=== PATIENT | male | born 1945 | race Caucasian/White ===

== ENCOUNTER 2019-03-15 05:27 | Inpatient (IN) | payer MEDICARE ==
[~2019-03-15] VITALS: Ht 180.3 cm; Wt 72.6 kg
[2019-03-15] MEDS ORDERED: REMERON15 M2 PO (05:40)
[2019-03-15] MEDS ORDERED: ABILIFY5 MG PO (05:41)
[2019-03-15] MEDS ORDERED: EFFEXOR XR150 M1 PO (05:43)
[2019-03-15] MEDS ORDERED: Synthroid,Lev150 MCG PO (05:44)
[2019-03-15] MEDS ORDERED: CASODEX50 MG PO (05:45)
[2019-03-15] MEDS ORDERED: MULTIVITAMINS1 EAC5 PO (05:46)
--- NOTE | 2019-03-15 10:40 | NUR ---
MASHA ROBLESSTARR a 73 year old M admitted via stretcher from the ADMITTING as a emergency 72 hr. hold admission. Arrived on unit at 1040. ALLERGIES: NKA. Vital signs are: 97.3-97-18 146/72 SPO2 99%RA. The client signed the following forms with stated understanding: Authorization For The Release of Medical Information, Clothing List, Consent and Release Forms/Receipt of Rights, Acknowledgement of Advance Directive Information, Behavioral Health Consent Form, and Informed Consent of Medications. Admitted under the services of Dr. NIKOLAY ROJAS,[facility]. A search was conducted and hazardous articles were removed. Client was oriented to the unit. CLIENT IS ALERT, ORIENTED X 4. STATES HE IS DEPRESSED, DENIES SI, INTENT, OR PLAN. STATES HE HAS FLEETINGLY HAD SUICIDAL THOUGHTS T/O HIS LIFE BUT STATES "I DON'T HAVE THE GUTS TO EVER DO IT". PT AMBULATES WITH STEADY GAIT. CONTINENT OF BOWEL AND BLADDER. Q15 MIN MONITORING PER POLICY. TOM WALDEN
[2019-03-15 11:01] VITALS: BP 146/72
--- NOTE | 2019-03-15 11:44 | NUR ---
Spoke with Pt. briefly and introduced Self. Pt. came to [facility]. States he lives at Home and would like to return home at discharge.
--- NOTE | 2019-03-15 15:45 | NUR ---
PM GROUP/BINGO PT ATTENDED AND PARTICIPATED IN AFTERNOON GROUP THERAPY BY PLAYING SEVERAL GAMES OF [employer]. PT EXPRESSED NO SUICIDAL IDEATIONS WHILE IN GROUP
[2019-03-15 17:37] LABS: BASO # 0.1 10*3/uL (0.0-0.1); BASO % 0.8 % (0.0-1.0); EOS # 0.2 10*3/uL (0.0-0.4); EOS % 2.6 % (1.0-4.0); HEMATOCRIT 37.6 % (42.0-52.0); HEMOGLOBIN 12.1 g/dl (14.0-18.0); LYMPH # 1.5 10*3/uL (1.3-4.4); LYMPH % 20.5 % (27.0-41.0); MEAN CELL VOLUME 90.8 fl (80.0-94.0); MEAN CORPUSCULAR HGB 29.2 pg (27.0-31.0); MEAN CORPUSCULAR HGB CONC 32.2 g/dl (33.0-37.0); MEAN PLATELET VOLUME 9.9 fl (9.6-12.3); MONO # 0.5 10*3/uL (0.1-1.0); MONO % 6.6 % (3.0-9.0); NEUT # 5.1 10*3/uL (2.3-7.9); NEUT % 69.2 % (47.0-73.0); PLATELET COUNT AUTOMATED 224 10*3/uL (130-400); RED BLOOD COUNT 4.14 10*6/uL (4.50-5.90); RED CELL DISTRI WIDTH 14.4 % (0-14.5); WHITE BLOOD COUNT 7.4 10*3/uL (4.8-10.8)
[2019-03-15 17:51] LABS: CREATININE 1.52 mg/dL (0.70-1.30); POTASSIUM 4.1 mmol/L (3.5-5.1); TOTAL PROTEIN 7.6 gm/dL (6.4-8.2)
[2019-03-15 17:59] LABS: THYROID STIM HORMONE (HS) 8.93 uIU/ml (0.358-4.75)
[2019-03-15 19:15] VITALS: BP 132/72
--- NOTE | 2019-03-15 20:28 | NUR ---
PT REFUSED IV FLUIDS. STATES HE WILL DRINK MORE FLUIDS. SPOKE TO DR ESCOBAR AND UP DATE PROVIDED. OK TO HOLD FLUIDS
--- NOTE | 2019-03-15 22:00 | NUR ---
EMESIS OF MODERATE AMOUNT UNDIGESTED FOOD ALL OVER BATHROOM SINK AND FLOOR. CLIENT STATES IT JUST STARTED. STATES FEELS FINE NOW. DENIES NEED FOR MEDICATION. NOTFIED DR ESCOBAR OF EVENTS.
--- NOTE | 2019-03-15 22:43 | NUR ---
MALOXX GIVEN FOR C/O UPSET STOMACHE
--- NOTE | 2019-03-15 23:38 | NUR ---
STATES EMESIS OF MALOXX. AGREES TO IV FLUIDS.
--- NOTE | 2019-03-16 00:01 | NUR ---
IV started left forearm with #20 angiocath after 1 attempts. The IV site was prepped with Chloraprep. Heparin lock attached. IV solution 0.9NS infusing at 125 cc/hr. Sterile dressing applied. Patient tolerated precedure well. Procedure performed according to [facility] policy & procedure. KIERSTEN BUSTOS
--- NOTE | 2019-03-16 02:30 | NUR ---
IV FLUIDS INFUSING WITHOUT DIFFICULTY. NO NEW EMESIS SINCE IVF'S STARTED
--- NOTE | 2019-03-16 03:11 | NUR ---
24 HR chart check completed.
[2019-03-16 06:36] LABS: BUN 32 mg/dl (7-24); CHLORIDE 107 mmol/L (98-107); CHOLESTEROL 188 mg/dL (<200); HDL CHOLESTEROL 53 mg/dl (40-60); LDL CHOLESTEROL 117 mg/dL (9-159); SODIUM 139 mmol/L (136-145); TRIGLYCERIDES 91 mg/dl (<150); VLDL CHOLESTEROL 18 mg/dL (6-40)
[2019-03-16 06:37] LABS: FREE T4 0.83 ng/dl (0.76-1.46)
--- NOTE | 2019-03-16 07:34 | NUR ---
2ND BAG OF 0.9NSS HUNG. ASSISTED CLIENT IN GETTING UP AND DRESSED FOR BREAKFAST. STATES HE IS HUNGRY
[2019-03-16 07:39] LABS: VITAMIN D, 25-HYDROXY 38.8 ng/mL (30-100)
[2019-03-16 08:00] VITALS: BP 146/78
--- NOTE | 2019-03-16 08:10 | NUR ---
Occupational Therapy evaluation completed on 3 with full eval to follow. Precautions include 3n unit prec, IV pole for hydration, impaired standing balance and activity tolerance, low complexity level 07981. Recommend OT per POC and return home with increased community support. Thank you. Calli Fall OTR/L
--- NOTE | 2019-03-16 08:15 | NUR ---
Treatment Plan meeting was held with Dr. Ford, RN, AT, CORPORATE LEGAL ASSISTANT-S and Services Mgr in attendance. Plan for discharge next week. Pt. will return home at discharge.
--- NOTE | 2019-03-16 08:15 | NUR ---
DR MARTINI ON UNIT TO SEE PATIENT
--- NOTE | 2019-03-16 09:37 | NUR ---
Nursing screen received and occupational therapy referral received. Thank you. Renee Fall OTR/L
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
[2019-03-16 10:58] LABS: BILIRUBIN NEGATIVE (NEGATIVE); BLOOD NEGATIVE (NEGATIVE); CLARITY SL CLOUDY (CLEAR); COLOR YELLOW (YELLOW); GLUCOSE NEGATIVE (NEGATIVE); KETONE NEGATIVE (NEGATIVE); LEUKO ESTERASE NEGATIVE (NEGATIVE); NITRITE NEGATIVE (NEGATIVE); UROBILINOGEN 0.2 E.U./dl (0.2-1.0)
[2019-03-16 11:12] LABS: WBC 0-2 wbc/hpf (0-5)
--- NOTE | 2019-03-16 11:40 | NUR ---
AM GROUP/EXERCISE AND BRAIN GAMES PT ATTENDED MORNING GROUP THERAPY AND PARTICIPATED IN ALL ACTIVITIES. PT EXPRESSED NO SUICIDAL IDEATIONS WHILE IN GROUP. PT WAS QUIET AND FOCUSED.
--- NOTE | 2019-03-16 11:43 | NUR ---
P-CONFUSION, DEPRESSED MOOD I-REDIRECTION WITH 1:1 THERAPEUTIC INTERVENTIONS AND PRESENT REALITY. EDUCATE AND ENCOURAGE MEDICATION COMPLIANCE R-PATIENT MEDICATION COMPLIANT. PATIENT REQUESTED TO REVIEW MEDICATIONS WITH THIS NURSE AND WANTING TO KNOW WHY HE WAS TAKING THEM. THIS NURSE EDUCATED PATIENT ABOUT MEDICATONS. PATIENT HAS NSS INFUSING AT 125ML INTO LEFT HAND WITHOUT DIFFICULT. PATIENT AMBULATING ON UNIT WITH STEADY GAIT AND WITHOUT ASSISTIVE DEVICE. PATIENT URINE SPECIMEN COLLECTED VIA CLEAN CATCH. URINE CLOUDY YELLOW. PATIENT CONTINENT OF URINE PRIOR TO URINE SPECIMEN COLLECTION. URINE OUTPUT OF 350ML. PATIENT DENIES DYSURIA P-CONTINUE TO ENCOURAGE MEDICATION COMPLIANCE, CONTINUE TO PRESENT REALITY, ENCOURAGE GROUP THERAPY WHILE AWAKE
--- NOTE | 2019-03-16 14:15 | NUR ---
PHYSICAL THERAPY Eval completed low complexity leverl [id number] pending progres recomend home with HH ? any family/cheondoism support or possible assisted living. Full report to follow presents with decrease enduranc/balance with ambulation PT to work on strenthening amb balance and safety. Angela Sharma PT
--- NOTE | 2019-03-16 15:26 | NUR ---
DR WHITNEY UPDATED THAT PATIENT COMPLETED WITH IVF AT THIS TIME. DR WHITNEY TO REVIEW TO SEE IF LAB WORK TO BE ORDERED IN THE AM
--- NOTE | 2019-03-16 15:39 | NUR ---
PM GROUP/LEISURE INTERESTS PT WAS PRESENT FOR AFTERNOON GROUP THERAPY AND PARTICIPATED BY WATCHING [employer]. PT WAS QUIET AND FOCUSED. PT EXPRESSED NO SUICIDAL IDEATIONS WHILE IN GROUP
[2019-03-16 19:45] VITALS: BP 129/65
--- NOTE | 2019-03-17 04:38 | NUR ---
24 HR chart check completed.
--- NOTE | 2019-03-17 05:16 | NUR ---
P- DEPRESSED MOOD, CONFUSION. I- REDIRECTION WITH 1:1, EDUCATE AND ENCOURAGE MED COMPLIANCE. R- IS MED COMPLIANT. PATIENT EDUCATED ABOUT MEDS. CONTINUE WITH PERIPHERAL LINE BUT NO FLUIDS. AMBULATES ON UNIT GAIT STEADY. HAD AN EMISIS OF UNDIGESTED FOOD AT 0130. VSS, HOB ELEVATED. RESP EASY. REFUSED PADMINI GENNA OR MAALOX. HAS HAD NO FURTHER EMESIS. WILL CONTINUE TO MOJNITOR. P- CONTINUE TO MONITOR MOOD AND ENCOURAGE INTERACTIOIN AND TO VERBALIZE FEELINGS.
[2019-03-17 08:00] VITALS: BP 131/84
--- NOTE | 2019-03-17 08:00 | NUR ---
Patient eating breakfast quietly with no c/o discomfort. Respirations easy and regular. Vital signs stable. No overt distress. TOM WALDEN
--- NOTE | 2019-03-17 09:13 | NUR ---
PT C/O NAUSEA AND VOMITING AT HS. STATES HIS DEPRESSION IS NO BETTER THAN WHEN HE ARRIVED. PT QUESTIONING MEDICATIONS. PT ASSESSED FOR MOOD AND AFFECT. ASSESSED FOR SI, INTENT OR PLAN. PROVIDED WITH MEDICATION EDUCATION. SPOKE WITH VALERIA SIMPSON REGARDING MEDICATIONS AND SIDE EFFECTS. PT STATES HE IS STILL DEPRESSED, AFFECT IS GLAT. PT DENIES SI, INTENT, OR PLAN. PT IS ISOLATIVE/WITHDRAWN TO SELF, WILL INTERACT WHEN VERBALLY CUED. PT SPEECH IS SLOW, SOFT, MONOTONE. CREMATORY ATTENDANT DISCONTINUED TRINTELLIX IN LIEU OF REMERON D/T PT C/O NAUSEA AND HAVING EMESIS X2 NIGHTS. WILL CONTINUE TO EDUCATE PT ON MEDICATIONS. WILL CONTINUE TO MONITOR MOOD, ASSESS FOR SI. WILL CONTINUE TO MONITOR EFFECTIVENESS AND SIDE EFFECTS OF MEDICATIONS. Q15 MIN MONITORING PER POLICY FOR SAFETY.
--- NOTE | 2019-03-17 12:01 | NUR ---
AM GROUP/EXERCISES/MUSIC/GAMES PT ENCOUYRAGED TO ATTEND AN DPARTICIPATE BUT PT CCHOSE TO REMAIN IN ROOM NAPPING AT THIS TIME. PT WILL CONTINUE TO BE ENCOURAGED TO ATTEND AND PARTICIPATE TO IN FUTURE GROUP SESSIONS.
--- NOTE | 2019-03-17 15:55 | NUR ---
PM GROUP/MUSIC/CRAFT PT ATTENDED AND PARTICIPATED IN GROUP SITTING IN CHAIR IN BACK OF ROOM PT KEPT QUIET AND REMAINED FOCUSED. PT EXPRESSED NO S.I. AT THIS TIME AND WILL CONTINUE TO ATTEND AND PARTICIPATE IN FUTURE GROUP SESSIONS.
[2019-03-17 19:59] VITALS: BP 136/60
--- NOTE | 2019-03-17 22:05 | NUR ---
Patient alert and oriented x3 with a few episodes of confusion noted. Mood is depressed. Denies any suicidal thoughts at this time. No hallucinations noted at this time. Patient compliant with medication without any difficulty. Provided emotional support. Patient ambulated in hallway with steady gait and unassisted. Plan to continue to encourage medication compliance and also continue to provide emotional support. Will continue to monitor moods and behaviors. Q 15 minute safety checks continued and maintained. See [facility] flowsheet for further documentation.
--- NOTE | 2019-03-18 00:15 | NUR ---
24 HR chart check completed.
--- NOTE | 2019-03-18 06:38 | NUR ---
Patient slept approx. 8+ hours throughout shift. Q 15 minute safety checks continued and maintained.
--- NOTE | 2019-03-18 07:56 | NUR ---
Patient resting quietly with no c/o discomfort. Respirations easy and regular. Vital signs stable. No overt distress. GIVENS,LOIS
[2019-03-18 08:27] VITALS: BP 151/79
--- NOTE | 2019-03-18 18:45 | NUR ---
stable mood. pt medication compliant. education provided regarding medications. pt verbalized understanding. interactive with peers and staff. no adverse moods or behaviors noted.
[2019-03-18 19:57] VITALS: BP 132/65
--- NOTE | 2019-03-18 20:10 | NUR ---
24 HR chart check completed.
--- NOTE | 2019-03-18 21:33 | NUR ---
P-MILDLY DEPRESSED I-ENCOURAGE VENTILATION OF FEELINGS & PROVIDE EMOTIONAL SUPPORT, ADMININSTER MEDS, MONITOR SLEEP R-MOOD MILDLY DEPRESSED. STATED THAT HE IS FEELING A LITTLE BETTER & HAS NOT HAD ANY MORE EMESIS. ALERT & ORIENTED X 4. HAS BEEN SITTING IN THE DINING ROOM WATCHING A FOOTBALL GAME BUT SITS QUIETLY & KEEPS TO HIMSELF. ATE SNACK. COMPLIANT WITH MEDS. P-CONTINUE TO MONITOR & PROVIDE EMOTIONAL & PHYSICAL SUPPORT NEEDED.
--- NOTE | 2019-03-19 05:22 | NUR ---
PT HAS SLEPT PAST 2129 WITH 1 BRIEF AWAKENING TO GO TO THE BATHROOM.
--- NOTE | 2019-03-19 07:25 | NUR ---
PHYSICAL THERAPY Patient seen this am for therapy visit and was just awakening supine in bed upon therapist arrival. Patient identified by name / and reports no new c/o's at this time. Patient transfers supine to sit EOB, then sit to stand CGA x 1. Patient ambulates without AD, ad hanh in hallway, SBA, 100'x 1, demonstrating slow, steady contreras and no LOB. Patient able to take 5-6 backward steps and tolerated single leg stance L side 5 seconds / R side 6 seconds. Patient returned to activity room chair at table awaiting breakfast and remained under [facility] staff Supervision. Will continue per POC as toleraed, total treatment time 17 minutes. Wei Baltazar, BOOK SHELVER
--- NOTE | 2019-03-19 07:30 | NUR ---
OT NOTE Pt was seen this A.M. 1:1 for 16 minute OT session with GLASS INSERTER and nursing staff present for observation only. Upon arrival pt was supine in bed. Pt identified by name and and had no complaints at this time. Pt transferred supine to sit EOB with supervision. While sitting EOB pt donned B socks and slippers with supervision. Also while sitting pt donned pants and underpants up to his knees with supervision and stood while donning from knees up with supervision. Also while standing pt donned shirt and jacket with supervision. Functional mobility was then completed from his bedroom to the dining soriano with SBA for safety. There he was left sitting upright under [facility] staff supervision. COntinue with POC as indicated. BHUMIKA Rojas/Zohreh
[2019-03-19 07:58] VITALS: BP 137/77
--- NOTE | 2019-03-19 08:03 | NUR ---
PHYSICAL THERAPY Screen received, pt has been evaluated and is currently on caseload thank you Angela Sharma PT
--- NOTE | 2019-03-19 08:15 | NUR ---
Treatment Plan meeting was held with Dr. Ford, RN, AT, PILLOWCASE CLEANER-S and De Icer Installer in attendance. Plan for discharge next week. Pt. came to the hospital from home and at this point plan is for patient to return home.
--- NOTE | 2019-03-19 08:40 | NUR ---
DR. MARTINEZ ON UNIT TO ASSESS PT, UPDATE PROVIDED.
--- NOTE | 2019-03-19 11:44 | NUR ---
AM GROUP/EXERCISE AND CURRENT EVENTS PT ATTENDED AND PARTICIPATED IN MORNING GROUP THERAPY. PT WAS QUIET BUT MORE ENGAGED IN THE GROUP CONVERSATION. PT EXPRESSED NO SUICIDAL IDEATIONS WHILE IN GROUP
--- NOTE | 2019-03-19 15:46 | NUR ---
PM GROUP/WREATHS PT ATTENDED AND PARTICIPATED IN AFTERNOON GROUP THERAPY. PT WAS QUIET AND ON TASK. PT EXPRESSED NO SUICIDAL IDEATIONS WHILE IN GROUP
--- NOTE | 2019-03-19 16:55 | NUR ---
P: PT MILDLY DEPRESSED, ISOALTIVE TO SELF AT TIMES. I: PROVIDE EMOTIONAL SUPPORT AND 1:1 FOR PT TO VOICE FEELINGS, ENCOURAGE MED COMPLIANCE AND PROVIDE MED EDUCATION, ENCOURAGE GROUP PARTICIPATION AND SOCIALIZATION. R: PT ALERT TO PERSON, PLACE, TIME AND SITUATION. PT MED COMPLIANT WITHOUT DIFFULTY, MED EDUCATION PROVIDED. PT CALM, MOOD REMAINS MILDLY DEPRESSED. PT PARTICIPATED IN GROUP THROUGHOUT THE DAY WITH ENCOURAGEMENT. PT AMBULATORY THROUGHOUT UNIT, GAIT STEADY. PT CONTINENT OF BOWEL AND BLADDER. P: MONITOR PT BEHAVIORS ON Q15 MIN SAFETY CHECKS, ENCOURAGE MED COMPLIANCE AND PROVIDE MED EDUCATION, PROVIDE EMOTIONAL SUPPORT AND 1:1 FOR PT TO VOICE FEELINGS, ENCOURAGE GROUP PARTICIPATION AND SOCIALIZATION.
[2019-03-19 19:39] VITALS: BP 125/66
--- NOTE | 2019-03-19 19:42 | NUR ---
24 HR chart check completed.
--- NOTE | 2019-03-19 20:47 | NUR ---
EVENING/GAMES/MUSIC/CRAFTS PT ATTENDED AFTER GETTING SHOWER AND PARTICIPATED IN GAME AND CHOSE NOT TO WORK ON CRAFT AT THIS TIME. PT QUIET BUT OBSERVANT. PT EXPRESSED NO S.I. AT THIS TIME AND WEILL CONTINUE TO ATTEND AND PARTICIPATE IN FUTURE GROUP SESSIONS.
--- NOTE | 2019-03-19 20:57 | NUR ---
P-MILDLY DEPRESSED I-ENCOURAGE VENTILATION OF FEELINGS & PROVIDE EMOTIONAL SUPPORT, ADMININSTER MEDS, MONITOR SLEEP R-MOOD MILDLY DEPRESSED. STATED THAT HE IS FEELING A LITTLE BETTER. PARTICIPATED IN RECREATIONAL THERAPY THIS EVENING WITH A BRIGHTER AFFECT NOTED WHILE INTERACTING WITH PEERS. ALERT & ORIENTED X 4. ATE SNACK. COMPLIANT WITH MEDS. P-CONTINUE TO MONITOR & PROVIDE EMOTIONAL & PHYSICAL SUPPORT NEEDED.
--- NOTE | 2019-03-20 05:28 | NUR ---
SLEPT PAST 2200
--- NOTE | 2019-03-20 07:18 | NUR ---
OT NOTE Pt was seen this A.M. 1:1 for 18 minute OT session with PLANT TENDER and nursing staff present for observation only. Upon arrival pt was supine in bed. Pt identified by name and and had no complaints at this time. Pt transferred supine to sit EOB with supervision. While sitting EOB pt donned B socks, shoes, and shirt with supervision. While donning his pants pt was attempting to complete while standing. While completing single leg stance pt had LOB that required Sigifredo to correct. Pt was educated on safety concerns and presented with good carry over. He then sat while donning his pants with supervision. Functional mobility was then completed into the bathroom with supervision. There he completed toileting task and sink side grooming with supervision. Pt was left sitting upright in the dining room under [facility] staff supervision. COntinue with POC as able. BHUMIKA Rojas/Zohreh
[2019-03-20 07:42] VITALS: BP 139/72
--- NOTE | 2019-03-20 08:15 | NUR ---
Treatment Plan meeting was held with Nurse Practitioner, RN, AT, DEBORAH-S and Astrobiologist in attendance. Plan for discharge next week. Pt. will return home at discharge.
--- NOTE | 2019-03-20 08:20 | NUR ---
JENA JOSEPH ON UNIT TO SEE PATIENT
--- NOTE | 2019-03-20 08:26 | NUR ---
PHYSICAL THERAPY Patient seen this am for therapy visit and was supine in bed upon therapist arrival. Patient identified by name / and was very pleasant this morning. OT dental chairside assistant was also present for observation only during TERRESTRIAL ECOLOGIST visit as patient transfers supine to sit EOB, then sit to stand SBA. Patient ambulates without AD, > 100'x 1, demonstrating slow, steady contreras, no LOB, including backward gait 5'x 2. Patient tolerated eyes open / closed and 360 degree turn around, SBA with no LOB. Patient returned to acitity room chair at table awaiting breakfast and remained under [facility] staff Supervision. Will continue per POC as tolerated, total treatment time 14 minutes. Wei Baltazar, TERRESTRIAL ECOLOGIST
--- NOTE | 2019-03-20 11:39 | NUR ---
AM GROUP PT ATTENDED AND PARTICIPATED IN MORNING GROUP THERAPY. PT WAS QUIET, ON TASK AND GOAL DRIVEN. PT EXPRESSED NO SUICIDAL IDEATIONS WHILE IN GROUP
--- NOTE | 2019-03-20 12:19 | NUR ---
P-DEPRESSED MOOD, ISOLATIVE I-REDIRECTION WITH 1:1 THERAPEUTIC INTERVENTIONS AND PRESENT REALITY. EDUCATE AND ENCOURAGE MEDICATION COMPLIANCE R-PATIENT MEDICATION COMPLIANT. PATIENT AMBULATING ON UNIT WITH STEADY GAIT AND WITHOUT ASSISTIVE DEVICE. PATIENT ISOLATIVE ON UNTI AT TIMES AND ENCOURAGAED TO COME OUT OF ROOM THROUGHOUT SHIFT. PATIENT STATING "I FEEL A LITTLE BETTER TODAY BUT IM JUST TIRED". P-CONTINUE TO ENCOURAGE MEDICATION COMPLIANCE, CONTINUE TO PRESENT REALITY, ENCOURAGE GROUP THERAPY WHILE AWAKE
--- NOTE | 2019-03-20 14:41 | NUR ---
Individual counseling with pt this afternoon. Pt stated that he was feeling severely depressed and discouraged. Empathized with pt who then stated that he did not sleep well last night. He also shared that a partial hospitalization program was mentioned to him as a possible discharge plan and that the thought of this has him all upset. Explained to pt that this parts data writer would work with pt to determine pt's needs for discharge. Informed pt that as pt nears discharge, all options will be discussed with him. Redirected pt to topic of gratitude and discussed what pt is thankful for. Pt stated it remains very difficult for him to find what he is thankful for but after a few minutes, pt stated that he was thankful for the 3 meals that he has been getting daily in the [facility] and he is thankful for his apartment. Discussed automatic thoughts and educated pt about recognizing automatic thoughts and correcting these thoughts with rational responses. Provided pt with an example of each. Provided pt with worksheets for correcting automatic thoughts. Also discussed was pt's increased anxiety at times due to the noise in the activity room. Informed pt that when he felt overwhelmed by the talking and noise in that room, pt could go to one of the quiet rooms and work on his gratitude journal or worksheets. Pt expressed appreciation. Pt displayed a flat affect throughout the session. Pt voiced discouragement about his depression but a want to feel better. Pt was soft-spoken and appropriately engaged in the session.
--- NOTE | 2019-03-20 19:52 | NUR ---
24 HR chart check completed.
[2019-03-20 20:00] VITALS: BP 111/65
--- NOTE | 2019-03-20 21:14 | NUR ---
P-DEPRESSED I-ENCOURAGE VENTILATION OF FEELINGS & PROVIDE EMOTIONAL SUPPORT, ADMININSTER MEDS, MONITOR SLEEP R-MOOD DEPRESSED. CONTINUES TO STATE THAT HE IS FEELING A LITTLE BETTER. SAT IN THE DINING ROOM & WAS ISOLATIVE TO HIMSELF. ALERT & ORIENTED X 4. ATE SNACK. COMPLIANT WITH MEDS. STATED HE HAD A BM TODAY. P-CONTINUE TO MONITOR & PROVIDE EMOTIONAL & PHYSICAL SUPPORT NEEDED.
--- NOTE | 2019-03-21 05:48 | NUR ---
PT HAS SLEPT PAST 2199
--- NOTE | 2019-03-21 07:10 | NUR ---
PHYSICAL THERAPY Patient seen this am for therapy visit and was sitting up on EOB upon therapist arrival. Patient identified by name / and voices no new c/o's at this time. Patient was Independent with all transfers and gait activity this session, demonstrating no LOB. Patient ambulated > 300' x 1 and completed TUG assessment in 10.26 seconds, no AD and no LOB. Patient was very plesant to work with this morning and returned to activity room chair awaiting breakfast under [facility] staff Supervision. OT assistant toddler teacher was also present for observation only during SANDWICH AND DRINK CART OPERATOR visit. Per discussion with Supervising therapist, patient to be d/c this date from therapy secondary to goals being MET. Wei Baltazar, SANDWICH AND DRINK CART OPERATOR
--- NOTE | 2019-03-21 07:35 | NUR ---
OT NOTE Pt was seen this A.M. 1:1 for 25 minute OT session with TRAINING OFFICER and nursing staff present for observation only. Upon arrival pt was supine in bed. Pt identified by name and and had no complaints at this time. Pt transferred supine to sit EOB with supervision. Sit to stand was then completed from bed level with supervision, followed by functional mobility to his closet where he gathered supplies needed for dressing and grooming task. Pt then sat EOB while donning pants, socks, and shoes with supervision. He then stood while donning shirt and over shirt with supervision. Functional mobility completed to the bathroom where he completed toileting task and stood sink side completing UB grooming with supervision. Functional mobility was then completed to the quiet room where he completed 5 time sit to stand without the use of his upper extremities in 18 seconds. Pt was left sitting upright in the dining room under [facility] staff supervision. Continue with POC as indicated. BHUMIKA Rojas/Zohreh
[2019-03-21 08:00] VITALS: BP 118/66
--- NOTE | 2019-03-21 08:53 | NUR ---
JENA HASSAN CNP ON UNIT TO ASSESS PATIENT.
--- NOTE | 2019-03-21 10:03 | NUR ---
Treatment Plan meeting was held with Dr. Ford, RN, AT, COREMAKER MACHINE-S and Real Estate Sales Supervisor in attendance. Plan for discharge when Stable. Dr. Ford states Tuesday with possible next week depending on clinical Symptoms.
--- NOTE | 2019-03-21 11:41 | NUR ---
AM GROUP PT ATTENDED MORNING GROUP THERAPY AND PARTICIPATED BY JOINING IN THE GROUP DISCUSSION. PT DID NOT HAVE MUCH TO ADD BUT LISTENED INTENTLY AND COMMENTED WHEN ASKED. PT EXPRESSED NO SUICIDAL IDEATIONS WHILE IN GROUP
--- NOTE | 2019-03-21 13:59 | NUR ---
P: DEPRESSED MOOD WITH FLAT AFFECT, WITHDRAWN TO SELF. I: ONE ON ONE, ENCOURAGED TO ATTEND AND PARTICIPATED IN GROUP SESSIONS. R: EFFECTIVE. PATIENT IS ALERT AND ORIENT TO PERSON, PLACE, TIME AND SITUATION; ABLE TO VOICE NEEDS. MOOD IS DEPRESSED WITH FLAT AFFECTIVE. DENIES ANY HALLUCINATIONS, DELUSIONS, HI/SI OR PAIN. INDEPENDENT WITH ACTIVITIES OF DAILY LIVING, CONTINENT OF BOWEL AND BLADDER. SET UP FOR MEALS. INTAKES ARE GOOD WITH ADEQUATE FLUIDS. INTERACTIVE WITH STAFF, PARTICIPATED IN GROUPS SESSION. Q 15 MINUTE SAFETY CHECKS MAINTAINED. MEDICATION COMPLAINT WITH EDUCATION PROVIDED. P: CONTINUE TO MONITOR MOOD AND VOICED THOUGHTS OF SI. PROVIDE ONE ON ONE AND ENCOURAGE PATIENT TO BE MORE INTERACTIVE WITH STAFF AND OTHER PATIENTS. ATTEND AND PARTICIPATE IN GROUP SESSIONS NEEDED.
--- NOTE | 2019-03-21 15:13 | NUR ---
Occupational Therapy Discharge Summary Patient was seen for Occupational Therapy 03/16/19 thru 03/21/19. During that time patient has participated in functional mobiliity for ADL set up, ADL transfers,grooming in standing and standing tolerance for ADLs. He was unable to perform five times sit to stand upon admission and is now able to perform at 18 sec with normal rate < 12 sec for his age. Patient performs all ADls at distant supervision and is able to set up supplies independently. Plan is for patient to return home upon d/c. At this time OT goals are met and patient is to be discharged from OT with goals met. Thank you. Renee Fall OTR/Zohreh
--- NOTE | 2019-03-21 15:17 | NUR ---
OCCUPATIONAL THERAPY CO-SIGN I approve of the Occupational Therapy notes written above. DESIRAE REHMAN OTR/Zohreh
--- NOTE | 2019-03-21 15:30 | NUR ---
Individual counseling this afternoon with pt. Discussed automatic thoughts further and the impact that these thoughts can have on one's mood. Discussed examples of these automatic thoughts that were provided in handouts that pt was given by this typewriter repairer. Encouraged pt to provide a rational/positive response to the examples. Pt was able to do so after a short period of time. Asked pt to share an automatic thought that he struggles with and then to speak a rational/positive response to that thought. Pt was able to do so. Discussed the difficulty in stopping automatic thoughts and ways in which pt can redirect himself to the positive. Discussed pt's gratitude journal listing. Discussed pt's current mood. Pt reported that he is feeling better than yesterday. Discussed pt discharging and an action plan for when he returns home. Pt stated that he does have some concern that he will automatically return to doing nothing and going nowhere. Discussed this further and brainstormed on how pt can prevent this from happening. Pt continues to display a flat affect. Pt does voice that he is feeling better than yesterday but remains depressed.
--- NOTE | 2019-03-21 15:39 | NUR ---
PM GROUP/CARDS PT ATTENDED AND PARTICIPATED IN AFTERNOON GROUP THERAPY. PT WAS QUIET AND FOCUSED. PT EXPRESSED NO SUICIDAL IDEATIONS WHILE IN GROUP.
--- NOTE | 2019-03-21 17:29 | NUR ---
SHIFT CHART CHECK COMPLETED
[2019-03-21 19:51] VITALS: BP 113/64
--- NOTE | 2019-03-21 21:00 | NUR ---
PT AFFECT FLAT. MORE INTERACTIVE WITH PEERS. PT ASSESSED FOR DEPRESSED MOOD, SI, INTENT OR PLAN. MEDICATION EDUCATION PROVIDED, ADMINISTERED PER ORDER. PT STATES HE STILL FEELS DEPRESSED. SPEECH REMAINS SLOW. PT DENIES SI, INTENT OR PLAN. PT QUESTIONED NAMENDA USAGE, EDUCATION PROVIDED, PT VERBALIZED UNDERSTANDING. MEDICATION COMPLIANT WITHOUT DIFFICULTY. WILL CONTINUE TO ASSESS MOOD. WILL CONTINUE TO ENCOURAGE SOCIALIZATION WITH PEERS AND STAFF. WILL CONTINUE TO EDUCATE ON MEDICATIONS. Q15 MIN MONITORING PER POLICY.
--- NOTE | 2019-03-22 01:00 | NUR ---
The patient has no complaints and is resting comfortably. TOM WALDEN
--- NOTE | 2019-03-22 05:42 | NUR ---
pt slept past 2214.
--- NOTE | 2019-03-22 07:25 | NUR ---
PHYSICAL THERAPY Patient seen this am for therapy visit and was sitting on EOB upon therapist arrival. Patient identified by name / and reports no new c/o's at this time. [facility] staff member present for observation during CAPTAIN'S ASSISTANT treatment this morning as patient observed transfering sit to stand, ambulating to bathroom, then activity room > 300'x1 and was Independent this session with all activities. No LOB observed as patient returned to and remained in chair at table in activity room awaiting breakfast under [facility] staff Supervision. Will discuss possible d/c plan with Supervising Therapist and continue per POC as appropriate. Total treatment time 16 minutes. Wei Baltazar PTA
[2019-03-22 08:01] VITALS: BP 134/85
--- NOTE | 2019-03-22 09:56 | NUR ---
DR LAWS ON UNIT TO SEE PATIENT
--- NOTE | 2019-03-22 10:24 | NUR ---
Treatment team meeting held with Dr Ford, RN, and RONALD. Plan is for pt to discharge home tomorrow with community mental health follow-up.
--- NOTE | 2019-03-22 10:57 | NUR ---
Met briefly with pt early this AM. Pt stated that he feels ready for discharge and would like to discharge tomorrow. Informed him that Dr Ford would be here this AM to further discuss this.
--- NOTE | 2019-03-22 11:49 | NUR ---
AM GROUP PT ATTENDED MORNING GROUP THERAPY AND PARTICIPATED BY PLAYING CARDS WITH PEERS. PT WAS QUIET AND FOCUSED ON THE GAME. PT EXPRESSED NO SUICIDAL IDEATIONS WHILE IN GROUP
--- NOTE | 2019-03-22 13:48 | NUR ---
NO ADVERSE MOODS OR BEHAVIORS NOTED THIS SHIFT. PT ALERT TO PERSON, PLACE, TIME AND SITUATION. PT MED COMPLIANT WITHOUT DIFFICULTY, MED EDUCATION PROVIDED. PT CALM, MOOD IS STABLE. PT MORE INTERACTIVE WITH STAFF AND PEERS. PT REMAINS ISOLATIVE TO SELF AT TIMES THROUGHOUT THE DAY. NO HALLUCINATIONS OR DELUSIONS NOTED. PT DENIES ANY SUICIDAL THOUGHTS. PT AMBULATORY THROUGHOUT UNIT, GAIT STEADY. PT CONTINENT OF BOWEL AND BLADDER. PLAN IS TO MONITOR PT BEHAVIORS ON Q15 MIN SAFETY CHECKS, ENCOURAGE MED COMPLIANCE AND PROVIDE MED EDUCATION, PROVIDE EMOTIONAL SUPPORT AND 1:1 FOR PT TO VOICE FEELINGS, EBCOURAGE GROUP PARTICIPATION AND SOCIALIZATION.
--- NOTE | 2019-03-22 13:51 | NUR ---
Met with pt individually. Assessed pt's readiness for discharge. Encouraged pt to have an action plan for when he returns home. Pt spoke of his plans, which is to have at least one thing to do each day to get him out of his apartment. He is planning on taking his car to get tires changed, going to the chiropractor, going to [facility], going to yazidism, and going to the community room in his apartment building. Discussed again the benefits of changing faulty automatic thoughts/negative self-talk into rational and positive thoughts. Pt continues to display a flat affect. He is voicing improvement of his mood. Denies suicidal ideations. He is future-oriented as he speaks of having daily plans.
--- NOTE | 2019-03-22 16:06 | NUR ---
PM GROUP/WATERCOLOR PT WAS LATE TO GROUP DUE TO TAKING A SHOWER. PT DID PARTICIPATE FOR THE LAST HALF HOUR BY WORKING ON A WATERCOLOR. PT WAS QUIET AND ON TASK AND EXPRESSED NO SUICIDAL IDEATIONS WHILE IN GROUP
[2019-03-22 19:45] VITALS: BP 142/76
--- NOTE | 2019-03-22 23:15 | NUR ---
NO ADVERSE BEHAVIORS NOTED. PT ALERT AND ORIENTED X4. MOOD STABLE. PT CALM, COOPERATIVE, ISOLATIVE TO SELF. PT MEDICATION COMPLIANT WITHOUT DIFFICULTY AFTER REVIEW. PT DENIES SI/HI AND HALLUCINATIONS NO NOTED RESPONDING TO INTERNAL STIMULI. PT ABLE TO MAKE NEEDS KNOWN, AMBULATORY WITH A STEADY GAIT. NO PHYSICAL COMPLAINTS VOICED. PT CURRENTLY LAYING DOWN WITH EYES CLOSED, RESPIRATIONS EASY AND REGULAR, NO SIGNS OR SYMPTOMS OF DISTRESS NOTED. PLAN IS TO CONTINUE TO MONITOR MOODS AND BEHAVIORS. PROVIDE 1:1 WITH THERAPEUTIC INTERVENTIONS. ENCOURAGE MEDICATION COMPLIANCE. MAINTAIN Q 15 MIN CHECKS.
--- NOTE | 2019-03-23 05:41 | NUR ---
24 HOUR CHART CHECK COMPLETED.
--- NOTE | 2019-03-23 06:04 | NUR ---
PATIENT OBSERVED ON Q 15 MIN CHECKS TO HAVE SLEPT APPROX 8 HOURS WITH NO AWAKENINGS OR SIGNS AND SYMPTOMS OF DISTRESS NOTED.
--- NOTE | 2019-03-23 08:15 | NUR ---
Treatment Plan meeting was held this a.m. with Dr. Ford, RN, AT, HAND TENNIS BALL COVERER-S and master planner in attendance. Plan for discharge today. Pt. will return home with follow up appointments arranged.
[2019-03-23 08:49] VITALS: BP 104/78
[2019-03-23] MEDS ORDERED: MIRTAZAPINE45 MG PO (10:17)
[2019-03-23] MEDS ORDERED: ARIPIPRAZOLE10 MG PO (10:17)
[2019-03-23] MEDS ORDERED: MEMANTINE HCL10 MG PO (10:17)
[2019-03-23] MEDS ORDERED: ARTHRITIS PAIN57 GM T (10:17)
[2019-03-23] MEDS ORDERED: FOLGARD TABLET1 EACH PO (10:17)
--- NOTE | 2019-03-23 11:47 | NUR ---
AM GROUP PT ATTENDED MORNING GROUP THERAPY AND PARTICIPATED BY FINISHING A WATERCOLOR PAINTING. PT WAS QUIET AND ON TASK. PT EXPRESSED NO SUICIDAL IDEATIONS WHILE IN GROUP
--- NOTE | 2019-03-23 13:49 | NUR ---
PHYSICAL THERAPY Pt seen on [facility] strength BLE 5/5, Transfers Independent overall, Amb > 300 ft Independently with no AD good overall balance with high dynamic balance activities. All PT goals achieved at this time D/C PT pt for possible discharge today or tomorrow to home with HH and support services. Angela Sharma PT
--- NOTE | 2019-03-23 14:52 | NUR ---
Patient is discharging today to home alone. Follow-up will be with [facility] in [place] and with Dr Cross, pt's PCP. Pt reports that he feels ready for discharge and that he will be actively involved in an activity each day to get him out of his apartment and around people. Pt denies the want to participate in an IOP program. While at [facility], pt did participate in programming. He is future-oriented as he is making plans to have an activity each day.
--- NOTE | 2019-03-23 15:18 | NUR ---
PHYSICAL THERAPY CO-SIGN I approve of the Physical Therapy notes written above. Angela Sharma PT
--- NOTE | 2019-03-23 15:39 | NUR ---
PT OFF THE UNIT AT THIS TIME. ALERT AND ORIENTED. ALL BELONGINGS SENT WITH PT. LOCK BOX AND MEDICATIONS IN PHARMACY SENT WITH PT. PT ESCORTED TO FRONT ENTRANCE BY A MENTAL HEALTH WORKER. VITALS STABLE. MOOD STABLE. DENIES SI, HI, HALLUCINATIONS AND DELUSIONS. MEDICATION EDUCATION PROVIDED
--- NOTE | 2019-03-23 15:41 | NUR ---
PM GROUP PT ATTENDED AND PARTICIPATED IN ALL GROUP ACTIVITIES. PT WAS ANIMATED, JOKING AND TALKATIVE DURING GROUP. PT IS SET TO BE DISCHARGED TONIGHT
== END 2019-03-23 15:43 | disposition home or self-care (01) | DRG 885 ==
LOC: 3N 05:27
PROVIDERS: Family Medicine; ADMIT Psychiatry & Neurology Psychiatry
DX: F33.2 Major depressive disorder, recurrent severe without psychotic features (principal); R45.851 Suicidal ideations; R63.4 Abnormal weight loss; F34.1 Dysthymic disorder; E03.9 Hypothyroidism, unspecified; E75.5 Other lipid storage disorders; C67.9 Malignant neoplasm of bladder, unspecified; Z68.22 Body mass index [BMI] 22.0-22.9, adult; Z85.46 Personal history of malignant neoplasm of prostate; Z84.1 Family history of disorders of kidney and ureter; Z79.899 Other long term (current) drug therapy